=== PATIENT | female | born 1990 | race Caucasian/White ===

== ENCOUNTER 2024-09-01 19:24 | Inpatient (IN) | payer OTHER, SELFPAY ==
[2024-09-01 19:23] VITALS: BMI 48.7
[2024-09-01 19:57] VITALS: BP 117/57; PULSE 88; RESP 16; TEMP 36.7
[2024-09-01] MEDS: 0.9% Saline Lock 10 ML Syringe IV (20:39)
[2024-09-01] MEDS: miSOPROStol 25 MCG TABLET VAGINAL (20:39)
[2024-09-01 20:41] LABS: Absolute Neutrophil Count 13.4 X10^3/uL (2.0-7.7); Basophil# 0.08 X10^3/uL; Basophil% 0.4 % (0-1); Eosinophils% 1.7 % (0-5); Hematocrit 36.5 % (37-47); Lymphocyte % 12.4 % (19-41); Mean Corp Hgb Conc 32.9 g/dL (32-36); Mean Corpuscular Volume 82.2 fL (81-99); Monocyte# 1.41 X10^3/uL; Monocyte% 7.9 % (0-10); NRBC Flagged by Analyzer 0 % (0-5); Neutrophil # 13.44 X10^3/uL (2.7-7.7); Neutrophil % 75.5 % (47-70); Platelet Count 266 K/mm3 (150-450); RBC Distribution Width CV 15.6 % (11.6-14.6); RBC Distribution Width SD 46.3 fl (35.1-43.9); Red Blood Count 4.44 M/mm3 (4.2-5.4); White Blood Count 17.8 K/mm3 (4.4-11.0)
[2024-09-01 21:18] LABS: Syphilis Antibodies Non-reactive
[2024-09-02] VITALS (10 sets, daily range): BP systolic 124–142; BP diastolic 60–78; PULSE 69–81; RESP 16; TEMP 36.4–36.8; O2SAT 96–99
[2024-09-02] MEDS: miSOPROStol 25 MCG TABLET VAGINAL ×4 (00:42→13:06)
--- NOTE | 2024-09-02 06:52 | PCM.HP.OB ---
HPI - General General Date of Admission: 09/01/24 Date of Service: 09/01/24 Chief Complaint: Induction HPI Narrative RO RAO, is a 34 F who presents induction of labor for maternal obesity. HX of HSv no recent outbreaks. EFW 56% Maternal Data Information Final DIPESH: 09/06/24 Gestational age: 39+2 PFSH PFSH Medical History Infertility Home Medications ?Medication ?Instructions ?Recorded ?Last Taken ?Type acyclovir 400 mg tablet 400 mg PO TID HSV 09/01/24 09/01/24 18:30 History aspirin 81 mg capsule 81 mg PO DAILY 09/01/24 09/01/24 08:00 History Allergy/AdvReac Type Severity Reaction Status Date / Time No Known Allergies Allergy Verified 09/01/24 20:02 Surgical History History of appendectomy Social History Smoking Status: Never smoker History 1 Elective abortions Hx Para 0 Spontaneous abortions Hx # Term Pregnancies Ectopic pregnancies Hx # Pregnancies Multiple births # of living children NST FHR Rate Baby A Baseline: 125 Variability:: Moderate Accelerations:: 15 x 15 Decelerations:: None NST Reactive:: Yes FHR Category:: Category I Uterine Activity:: quiet ROS Constitutional Constitutional: Denies fatigue, fever(s) or malaise Eyes Eyes: Denies change in vision ENT HEENT: Denies dizziness or headache(s) Cardiovascular Cardiovascular: Denies chest pain, dyspnea or lightheadedness Respiratory/Chest Respiratory/Chest: Denies cough or dyspnea Gastrointestinal Gastrointestinal: Denies change in bowel habits Genitourinary Genitourinary: Denies burning urination or genital lesions Integumentary Integumentary: Denies rash Neurologic Neurologic: Denies confusion, dizziness, headache(s), numbness or weakness Vital Signs Vital Signs Vital Signs: 09/01/24 19:57 09/01/24 19:57 09/01/24 19:57 Temperature Temperature Source Temporal Pulse Rate 88 Respiratory Rate Blood Pressure 117/57 L BP Systolic 117 BP Diastolic 57 Pulse Ox 09/01/24 19:57 09/01/24 19:57 09/02/24 00:44 Temperature 98.1 F Temperature Source Pulse Rate Respiratory Rate 16 Blood Pressure 124/60 H BP Systolic 124 BP Diastolic 60 Pulse Ox 09/02/24 00:44 09/02/24 00:44 09/02/24 00:44 Temperature Temperature Source Temporal Pulse Rate 74 Respiratory Rate 16 Blood Pressure BP Systolic BP Diastolic Pulse Ox 09/02/24 00:44 09/02/24 00:44 09/02/24 04:30 Temperature 97.6 F L Temperature Source Pulse Rate Respiratory Rate Blood Pressure 135/65 H BP Systolic 135 BP Diastolic 65 Pulse Ox 98 09/02/24 04:30 09/02/24 04:30 09/02/24 04:30 Temperature Temperature Source Temporal Pulse Rate 74 Respiratory Rate Blood Pressure BP Systolic BP Diastolic Pulse Ox 98 09/02/24 04:30 09/02/24 04:30 Temperature 98.0 F Temperature Source Pulse Rate Respiratory Rate 16 Blood Pressure BP Systolic BP Diastolic Pulse Ox Weight Weight: 128.8 kg Body Mass Index (BMI) 48.7 Physical Exam Const alert and no apparent distress General Appearance: cooperative HEENT normocephalic Resp normal respiratory effort GI soft to palpation GI Narrative: gravid, nontender, appropriate for gestational age Extremity no calf tenderness General Extremity: edema Skin no wounds Rashes: No rashes noted Psych activity/motor behavior normal Labs Labs Labs: Blood Type O POSITIVE Antibody Screen NEGATIVE Hct 36.5 % (37-47) L Hgb 12.0 g/dL (12.0-15.0) Syphilis Total Ab Non-reactive Assessment & Plan (1) Encounter for induction of labor: (2) 39 weeks gestation of : (3) Hx of herpes simplex infection: (4) Maternal obesity affecting , antepartum: PLAN: Plan Cytotec, samano, pitocin Epidural prn
--- NOTE | 2024-09-02 08:59 | PCM.PN.CNM ---
Subjective Subjective Patient seen at bedside. Requesting to eat light breakfast Objective Data Objective Data Vital Signs: Vital Signs Temp Pulse Resp BP Pulse Ox 98.0 F 73 16 142/62 H 99 09/02/24 07:36 09/02/24 07:36 09/02/24 07:36 09/02/24 07:36 09/02/24 07:36 Weight: 283 lb 15.286 oz Body Mass Index (BMI) 48.7 Lab / Micro Data 09/01/24 20:30 Labs: Laboratory Results - last 24 hr 09/01/24 20:30: WBC 17.8 H, RBC 4.44, Hgb 12.0, Hct 36.5 L, MCV 82.2, MCH 27.0, MCHC 32.9, RDW Std Deviation 46.3 H, RDW Coeff of Wendi 15.6 H, Plt Count 266, MPV 10.0, Immature Gran % (Auto) 2.100 H, Neut % (Auto) 75.5 H, Lymph % (Auto) 12.4 L, [place] % (Auto) 7.9, Eos % (Auto) 1.7, Baso % (Auto) 0.4, Absolute Neuts (auto) 13.4 H, Absolute Lymphs (auto) 2.20, Nucleated RBC % 0, Syphilis Total Ab Non-reactive, Blood Type O POSITIVE, Antibody Screen NEGATIVE Assessment & Plan (1) Maternal obesity affecting , antepartum: (2) Hx of herpes simplex infection: (3) 39 weeks gestation of : (4) Encounter for induction of labor: (5) Positive GBS test: PLAN: Plan CE - FT/ thick/ high- unable to place samano bulb Continue Cytotec 25 mcg PO every 4 hours with max of 6 doses GBS positive- PCN IV every 4 hours Increase ambulation Epidural when indicated
--- NOTE | 2024-09-02 12:54 | PN.OBGYN_ITS ---
Subjective Subjective Patient seen at bedside. Starting to feel mild contractions. Objective Data Objective Data Vital Signs: Vital Signs Temp Pulse Resp BP Pulse Ox 98.3 F 71 16 133/74 H 96 09/02/24 12:39 09/02/24 12:39 09/02/24 12:39 09/02/24 12:39 09/02/24 12:39 Weight: 283 lb 15.286 oz Body Mass Index (BMI) 48.7 Lab / Micro Data 09/01/24 20:30 Labs: Laboratory Results - last 24 hr 09/01/24 20:30: WBC 17.8 H, RBC 4.44, Hgb 12.0, Hct 36.5 L, MCV 82.2, MCH 27.0, MCHC 32.9, RDW Std Deviation 46.3 H, RDW Coeff of Wendi 15.6 H, Plt Count 266, MPV 10.0, Immature Gran % (Auto) 2.100 H, Neut % (Auto) 75.5 H, Lymph % (Auto) 12.4 L, [place] % (Auto) 7.9, Eos % (Auto) 1.7, Baso % (Auto) 0.4, Absolute Neuts (auto) 13.4 H, Absolute Lymphs (auto) 2.20, Nucleated RBC % 0, Syphilis Total Ab Non- reactive, Blood Type O POSITIVE, Antibody Screen NEGATIVE Assessment & Plan (1) Positive GBS test: (2) Maternal obesity affecting , antepartum: (3) Hx of herpes simplex infection: (4) 39 weeks gestation of : (5) Encounter for induction of labor: PLAN: Plan CE /-4- Extremely posterior Cat. 1 tracing Physician to attempt placement of samano bulb Epidural when indicated
[2024-09-02] MEDS: 0.9% Saline Lock 10 ML Syringe IV ×2 (14:56→19:09)
--- NOTE | 2024-09-02 15:01 | PCM.PN.BLA ---
Progress Note at bedside to check on patient. she offers no complaints. Assessment & Plan Assessment/Plan (1) Positive GBS test: (2) Maternal obesity affecting , antepartum: (3) Hx of herpes simplex infection: (4) 39 weeks gestation of : (5) Encounter for induction of labor: PLAN: Cvx 1/t/h, vertex. Intracervical samano placed in usual sterile fashion and filled with 30 cc saline. Patient tolerated well.
[2024-09-02] MEDS: Penicillin G Pot 5,000,000 UNITS in 0.9% Normal Saline (100mL MB+) 100 ML 150 UNITS IV (15:07)
--- NOTE | 2024-09-02 18:44 | PCM.PN.CNM ---
Subjective Subjective Patient seen at bedside. Occasionally feeling contractions. Objective Data Objective Data Vital Signs: Vital Signs Temp Pulse Resp BP Pulse Ox 98.3 F 74 16 129/78 H 96 09/02/24 12:39 09/02/24 18:42 09/02/24 12:39 09/02/24 18:42 09/02/24 12:39 Weight: 283 lb 15.286 oz Body Mass Index (BMI) 48.7 Intake & Output: Intake and Output for Last 24 Hours 08/31/24 09/01/24 09/02/24 23:59 23:59 23:59 Intake Total 1305 / 1305 Output Total 850 / 850 Balance 455 / 455 Lab / Micro Data 09/01/24 20:30 Labs: Laboratory Results - last 24 hr 09/01/24 20:30: WBC 17.8 H, RBC 4.44, Hgb 12.0, Hct 36.5 L, MCV 82.2, MCH 27.0, MCHC 32.9, RDW Std Deviation 46.3 H, RDW Coeff of Wendi 15.6 H, Plt Count 266, MPV 10.0, Immature Gran % (Auto) 2.100 H, Neut % (Auto) 75.5 H, Lymph % (Auto) 12.4 L, [place] % (Auto) 7.9, Eos % (Auto) 1.7, Baso % (Auto) 0.4, Absolute Neuts (auto) 13.4 H, Absolute Lymphs (auto) 2.20, Nucleated RBC % 0, Syphilis Total Ab Non-reactive, Blood Type O POSITIVE, Antibody Screen NEGATIVE Assessment & Plan (1) Encounter for induction of labor: (2) 39 weeks gestation of : (3) Maternal obesity affecting , antepartum: (4) Positive GBS test: (5) Hx of herpes simplex infection: PLAN: Plan CE- /70/-3 AROM for moderate amount of clear fluid FSE and IUPC placed without difficulty Dr. Quinones present Start Pitocin 2 mu/min and increase per orders
[2024-09-02] MEDS: Lactated Ringers 1,000 ML 15 ML IV (19:09)
[2024-09-02] MEDS: Oxytocin 15 Units/NS 250ml 15 UNITS/250 ML IV.SOLN 2 UNITS IV (19:10)
[2024-09-02] MEDS: Penicillin G 3,000,000 Units 50 ML 100 UNITS IV (19:47)
[2024-09-03] VITALS (59 sets, daily range): BP systolic 86–141; BP diastolic 52–88; PULSE 69–96; RESP 16–20; TEMP 36.3–37.4; O2SAT 95–100
[2024-09-03] MEDS: fentaNYL 100 MCG/2 ML Ampul IV ×4 (00:04→06:41)
[2024-09-03] MEDS: 0.9% Saline Lock 10 ML Syringe IV ×5 (00:04→17:44)
[2024-09-03] MEDS: Penicillin G 3,000,000 Units 50 ML 100 UNITS IV ×4 (00:53→13:20)
[2024-09-03] MEDS: Lactated Ringers 1,000 ML 999 ML IV (08:40)
--- NOTE | 2024-09-03 08:46 | PCM.PN.OB ---
Subjective Subjective Presented to patient room as oncoming provider. Nurse in middle of vaginal exam and placing new IUPC as two prior dislodged. When preparing to complete vaginal exam and place IUPC partner stated, Ro don't talk to them talk to me, don't let them bully you. At that time, gloves removed and patient returned to upright position. Reviewed with patient and partner no exams are conducted without consent and if she wishes to not proceed due to pain we will stop. No current pain relief at this time as she has declined epidural and used Fentanyl PRN. Instructed patient and partner to discuss how they would like to proceed and time to talk alone and myself and nurse left the room. After giving time for patient and partner to talk we returned to review plan of care. Objective Data Objective Data Vital Signs: Vital Signs Temp Pulse Resp BP Pulse Ox 97.6 F L 72 17 122/65 H 97 09/03/24 08:03 09/03/24 07:58 09/03/24 07:59 09/03/24 07:58 09/03/24 07:59 Weight: 283 lb 15.286 oz Body Mass Index (BMI) 48.7 Intake & Output: Intake and Output for Last 24 Hours 09/01/24 09/02/24 09/03/24 23:59 23:59 23:59 Intake Total 1372.70 / 1372.70 190.83 / 190.83 Output Total 1200 / 1200 Balance 172.70 / 172.70 190.83 / 190.83 Lab / Micro Data 09/01/24 20:30 Physical Exam Narrative Informed refusal of IUPC and vaginal exam NST FHR Rate Baby A Baseline: 130 Variability:: Moderate Accelerations:: None Decelerations:: Variable FHR Category:: Category II Uterine Activity:: Every 2 minutes Assessment & Plan (1) Positive GBS test: (2) Maternal obesity affecting , antepartum: (3) Hx of herpes simplex infection: (4) 39 weeks gestation of : (5) Encounter for induction of labor: PLAN: Plan 1) Discussed with patient and partner that I would recommend an epidural at this time for pain relief. After epidural would recommend vaginal exam in 2-3 hours and IUPC placement for evaluation of adequacy of contractions. Patient and partner felt comfortable with this plan and moving forward 2) Category 2 FHT 3) Pitocin at 20mu's, EFM currently per patient request 4) AROM at 1830, ruptured for over 12hr with no cervical change. Patient desires to continue with labor at this time. 5) Reviewed plan with collaborative physician and assessment. Agrees with plan of care.
[2024-09-03] MEDS: fentaNYL-bupivacaine (epidural) 100 ML BAG EPIDURAL (09:52)
--- NOTE | 2024-09-03 13:07 | PCM.PN.OB ---
Subjective Subjective Patient resting comfortably in bed with epidural and was able to rest. Partner at bedside. Discussed earlier this morning about labor progression protracted and after epidural placement to evaluate for cervical change and then to discuss delivery plan. Objective Data Objective Data Vital Signs: Vital Signs Temp Pulse Resp BP Pulse Ox 97.6 F L 89 17 119/57 L 99 09/03/24 11:55 09/03/24 13:06 09/03/24 11:55 09/03/24 13:06 09/03/24 11:06 Weight: 283 lb 15.286 oz Body Mass Index (BMI) 48.7 Intake & Output: Intake and Output for Last 24 Hours 09/01/24 09/02/24 09/03/24 23:59 23:59 23:59 Intake Total 1372.70 / 1372.70 1443.58 / 1443.58 Output Total 1200 / 1200 Balance 172.70 / 172.70 1443.58 / 1443.58 Lab / Micro Data 09/04/24 06:45 Physical Exam Narrative: /-3 NST FHR Rate Baby A Baseline: 135 Variability:: Moderate Accelerations:: 15 x 15 Decelerations:: Variable FHR Category:: Category II Uterine Activity:: Regular every 2.5 minutes, strong MVU 220 adequate Assessment & Plan (1) 39 weeks gestation of : (2) Encounter for induction of labor: (3) Maternal obesity affecting , antepartum: (4) Hx of herpes simplex infection: (5) Positive GBS test: (6) Failure to progress in first stage of labor: (7) Failed induction of labor: PLAN: Plan 1) The patient was admitted on 09/01/2024 for induction of labor due to maternal obesity. She underwent Cytotec cervical ripening x 5 doses then followed by a Samano placement. After samano expelled had artificial rupture membranes. She had artificial rupture of membranes for 12 plus hours without significant progression of cervical dilation. The head remained unengaged and cervical change after pitocin at 20mu's with adequate contractions for at least 6 hours. Discussed with patient recommendation to proceed with primary section. Agreeable to plan of care. 2) Ancef 3grams IVPB x 1 3) Azithromycin 500mg IVPB x 1 4) notified of cervical exam and failed inductino of labor with failure to progress and recommend section, patient agrees with plan of care. agrees with above assessment and plan. Will prepare for section and transfer of care to physician at this time for management.
[2024-09-03] MEDS: Sodium Citrate/Citric Acid 30 ML UDC PO (14:48)
[2024-09-03] MEDS: Acetaminophen 500 MG Tablet PO (14:49)
[2024-09-03] MEDS: Cefazolin 3 GM in 0.9% Normal Saline (100mL Bag) 100 ML IV (14:56)
[2024-09-03] MEDS: Azithromycin 500 MG in Dextrose 5%-Water (250mL Bag) 250 ML 250 MG IV (15:15)
--- NOTE | 2024-09-03 15:50 | PLAC_PTH ---
PATIENT: RO RAO LOC: WP U#:[id number] AGE/SX: 34/F ROOM: WP010 RE09/01/[address]: Dr. Taryn Khanna MD : 1990 BED: 1 DIS: 09/05/2024 SPEC #: [id number] RECD: 09/06/24 08:17 STATUS: SHAJI REKiko #: [id number] JENNYFER: 09/03/24 15:[address]: Taryn Khanna DEPT: SURGICAL PATHOLOGY RECD BY: Sherry Stone ENTERED: 09/06/24 08:17 SP TYPE: PLACENTA OTHR DR: No Primary Care Phys Tissues: Placenta, NOS Procedures: Surgery Specimen Level V HEADER OPERATION: section PRE-OP DIAGNOSIS: Arrest of dilation TISSUE SUBMITTED: Placenta MICROSCOPIC DIAGNOSIS Allen placenta (497 gm): Umbilical cord - Trivascular with no evidence of inflammation. Placental membranes - Mild acute decidual inflammation. Placental disc - Donta-Lon change, intervillous congestion, mildly increased intraparenchymal Microcalcificaitons and rare intravascular thrombi. AM: 09/07/2024 MICROSCOPIC DESCRIPTION Slides are reviewed. GROSS DESCRIPTION SPECIMEN: PLACENTA / CLINICAL INFORMATION: A. Weight: 2.965 kg B. Gestational Age: 39 weeks C. Sex: Male PLACENTAL WEIGHT (POST FIXATION): 497 gm PLACENTAL DIMENSIONS: 20.0 x 16.0 x 3.5cm PLACENTAL SHAPE: Usual ovoid PLACENTAL WEIGHT FOR GESTATIONAL AGE: Within 10-99th percentile MEMBRANES - Present A. Insertion: Marginal B. Site of rupture from edge: Fragmented and present detached from the placental disc. Distance of rupture cannot be assessed. C. Color of membrane: Hardin walls D. Abnormalities: None UMBILICAL CORD - Present A. Color: Hardin walls B. Insertion: Central and appears to be 5cm long portion of the umbilical cord is bifurcated before insertion into the placental disc. C. Length: 45.0 cm D. Diameter: 1.2 cm E. Number of vessels: Three F. Abnormalities: A true loose knot is also noted 13cm away from the end. PLACENTAL DISC - Present A. Color of surface: Hardin walls B. surface abnormalities: None C. Maternal cotyledons: Intact with minimal tears D. Attached retro placental clot: No clot E. Cut surface: Dark red and spongy F. Lesions: None G. Separate clot: Absent SECTIONS SUBMITTED: (6 cassettes) 1. Membrane roll 2. Cord, maternal end 3. Cord, end 4. Placental disc, and maternal surfaces 5. Placental disc, and maternal surfaces 6. Placental disc, and maternal surfaces SJ.mr 09/06/2024 TC:2 CPT: 43721
--- NOTE | 2024-09-03 16:04 | OP.PCM_ITS ---
Maternal Data Information Final DIPESH: 09/06/24 Gestational age: 39 4/7 Details Operative Information Date of Procedure: 09/03/24 Pre-Operative Diagnosis: arrest of dilation, maternal obesity BMI >35, failed induction Post-Operative Diagnosis: same Classification: NORTH Procedure Type: low transverse yard supervisor cotton gin #1: Dennis Garsia yard supervisor cotton gin #2: Jennifer Leong MS3 Type of Anesthesia: Epidural Anesthesiologist: Kendrick Amezcua Special Medications: preop TXA Antibiotic Given: Ancef 3 grams IV x1 and Zithromax 500 mg/5 mL X1 Drain: Vale to straight drain Estimated Blood Loss: 800 Fluids Replaced: 1200 Procedure Start Time: 15:16 Procedure Stop Time: 16:06 Time of Delivery: 15:19 Findings Description of Procedure: The patient was admitted on 09/01/2024 for induction of labor due to maternal obesity. She underwent Cytotec cervical ripening followed by a Vale with artificial rupture membranes. She had artificial rupture of membranes for 20 hours without significant progression of cervical dilation. The head remained unengaged at the time of . I checked the patient she was 480 and the cervix was tight and the head was unengaged with significant caput. At this point the patient met in failed induction criteria. Risk benefits and alternatives to section were reviewed and the patient desired to proceed. The patient was taken to the operating room. She was prepped and draped in the dorsal supine position with a leftward tilt. A Pfannenstiel skin incision was made approximately 2 cm above the symphysis pubis and carried through to underlying layer fascia with the scalpel. The fascia was incised incised in the midline and extended laterally with the Rueda scissors. The fascia was dissected off the rectus muscles with blunt and sharp dissection. The rectus muscles were in the midline and the peritoneum was entered bluntly. The peritoneal incision was stretched and the bladder blade was placed. The uterine incision was made in a low transverse fashion with the scalpel and extended superiorly and inferiorly with blunt dissection. The amniotic membranes were ruptured bluntly and clear amniotic fluid returned. The infant's head was brought to the incision in the flexed position and delivered without difficulty. The remainder of the infant was delivered with gentle traction and fundal pressure in the standard fashion. The mouth and nares were bulb suctioned. The cord was clamped and cut as the infant was stimulated. Cord clamping was delayed approximately 30 seconds. The was handed off to the waiting nursing staff. The placenta was delivered with fundal massage and gentle traction in the standard fashion. The uterus was exteriorized and cleared of all clots and debris. The uterine incision was closed with #1 Vicryl in a running locked fashion. A second layer of the same suture was used in an imbricating fashion to obtain hemostasis. 2 [id number] 0 Vicryl sutures were placed through a bleeding sinus near the midline. The incision was examined and was found to be hemostatic. The uterus was placed back into the peritoneal cavity and hemostasis was again c onfirmed. Hemablast was placed over the incision. The rectus muscles were examined and any bleeding was Bovie cauterized. The parietal peritoneum and rectus muscles were closed en bloc with an 0 Vicryl running suture. The surgical teams outer gloves were then changed. The rectus fascia was examined and any bleeding was Bovie cauterized and the rectus fascia was closed with #1 looped PDS suture in a running standard fashion. Hemablast was placed over the rectus muscles. The subcutaneous tissue was examining and any bleeding was Bovie cauterized. The subcutaneous tissue was reapproximated with 3-0 Vicryl suture. The skin was closed in a subcuticular fashion by the DOCUMENTATION IMPROVEMENT SPECIALIST with me present in the labor and delivery suite. I performed the remainder of the procedure with assistance. All sponge, lap, and needle counts were correct. The patient was taken to her room for recovery in a stable condition. The DOCUMENTATION IMPROVEMENT SPECIALIST performed tissue retraction, assistance with suturing and fundal massage and closure of the skin incision. The student assisted with closure of the skin incision and tying of subcuticular sutures. Presentation: Positive for Vertex Amniotic Membrane Rupture Type: Artificial Amniotic Fluid Description: Clear Placental Delivery Description: Manual Removal Placenta Disposition: Sent to Pathology Specimen(s) Sent to Pathology: placenta Cord Vessel Description: 3 Vessels Cord Entanglement: None Nuchal Cord Compression: Without compression Infant A Gender: Male (1 minute): 9 (5 minute): 9 Delayed Cord Clamping: No Complications Complications: none Admit VTE Documentation VTE Present on Admission: No VTE Mechan Device Prophylaxis: SCD's VTE Pharm Prophylaxis Ordered: Yes
--- NOTE | 2024-09-03 16:15 | PCM.PN.BLA ---
Progress Note Called by nursing ad patient w/ poorly controlled pain and concerned about being able to rest at home. Ok to monitor and keep for IV pain control prn overnight.
[2024-09-03] MEDS: Oxytocin 15 Units/NS 250ml 15 UNITS/250 ML IV.SOLN 83 UNITS IV (16:20)
[2024-09-03 16:47] LABS: Pathology Specimen OB SEE PATHOLOGY REPORT
[2024-09-03] MEDS: Ketorolac 30 MG/ML Syringe IV (17:44)
[2024-09-03] MEDS: Lactated Ringers 1,000 ML 100 ML IV (19:26)
[2024-09-03] MEDS: Acetaminophen 500 MG Tablet 1000 MG PO (20:44)
--- NOTE | 2024-09-03 22:51 | NURSING ---
pt encouraged to drink more water, RN to reassess if toradol can be given around 2340
[2024-09-04 00:35] VITALS: BP 113/68; PULSE 93; RESP 18; TEMP 37.5; O2SAT 97
[2024-09-04] MEDS: Ketorolac 30 MG/ML Syringe IV ×2 (04:16→10:27)
[2024-09-04] MEDS: Acetaminophen 500 MG Tablet 1000 MG PO ×4 (04:16→22:02)
[2024-09-04] MEDS: Enoxaparin 40 MG/0.4 ML Syringe SC ×2 (04:16→16:05)
[2024-09-04] MEDS: 0.9% Saline Lock 10 ML Syringe IV ×2 (04:17→10:27)
[2024-09-04 04:25] VITALS: BP 136/79; PULSE 93; RESP 22; TEMP 37.5; O2SAT 97
[2024-09-04 06:59] LABS: Hematocrit 33.6 % (37-47); Hemoglobin 10.9 g/dL (12.0-15.0); Mean Corp Hgb Conc 32.4 g/dL (32-36); Mean Corpuscular Hgb 27.1 pg (27.0-32.0); Mean Corpuscular Volume 83.6 fL (81-99); Platelet Count 240 K/mm3 (150-450); RBC Distribution Width CV 15.7 % (11.6-14.6); Red Blood Count 4.02 M/mm3 (4.2-5.4); White Blood Count 20.4 K/mm3 (4.4-11.0)
[2024-09-04 08:50] VITALS: BP 127/68; PULSE 86; RESP 16; TEMP 37; O2SAT 96
[2024-09-04] MEDS: Senna/Docusate Sodium 1 Tablet PO (10:27)
--- NOTE | 2024-09-04 10:30 | PCM.PN.OB ---
Subjective Subjective Doing well per patient and nursing staff. Ambulating and taking PO without difficulty. Voiding and passing flatus. Pain controlled. , services for assistance. Denies headache, visual changes, chest pain, shortness of breath, leg pain or increased bleeding. Lochia normal. Objective Data Objective Data Vital Signs: Vital Signs Temp Pulse Resp BP Pulse Ox O2 Del Method 98.6 F 86 16 127/68 H 96 Room Air 09/04/24 08:50 09/04/24 08:50 09/04/24 08:50 09/04/24 08:50 09/04/24 08:50 09/04/24 08:50 Oxygen Delivery Method Room Air Weight: 283 lb 15.286 oz Body Mass Index (BMI) 48.7 Intake & Output: Intake and Output for Last 24 Hours 09/02/24 09/03/24 09/04/24 23:59 23:59 23:59 Intake Total 1372.70 / 1372.70 3202.16 / 3202.16 1000.00 / 1000.00 Output Total 1200 / 1200 1625 / 1625 700 / 700 Balance 172.70 / 172.70 1577.16 / 1577.16 300.00 / 300.00 Lab / Micro Data 09/04/24 06:45 Labs: Laboratory Results - last 24 hr 09/04/24 06:45: WBC 20.4 H, RBC 4.02 L, Hgb 10.9 L, Hct 33.6 L, MCV 83.6, MCH 27.1, MCHC 32.4, RDW Std Deviation 48.0 H, RDW Coeff of Wendi 15.7 H, Plt Count 240, MPV 10.0 ROS Constitutional Constitutional: Reports systems reviewed and no addt'l complaints, except as documented; Denies headache(s) Eyes Eyes: Denies acute decrease in peripheral vision, blurry vision or change in vision ENT HEENT: Reports systems reviewed and no addt'l complaints, except as documented Cardiovascular Cardiovascular: Denies chest pain or dizziness Respiratory/Chest Respiratory/Chest: Denies cough, dyspnea, dyspnea on exertion, shortness of breath at rest or shortness of breath with exertion Gastrointestinal Gastrointestinal: Denies abdominal pain, diarrhea, nausea or vomiting Genitourinary Genitourinary: Denies abdominal discomfort Musculoskeletal Musculoskeletal: Denies limited range of motion Integumentary Integumentary: Reports systems reviewed and no addt'l complaints, except as documented Neurologic Neurologic: Reports systems reviewed and no addt'l complaints, except as documented Psychiatric Psychiatric: Reports systems reviewed and no addt'l complaints, except as documented Endocrine Endocrinology: Reports systems reviewed and no addt'l complaints, except as documented Hematologic/Lymphatic Hematologic/Lymphatic: Reports systems reviewed and no addt'l complaints, except as documented Allergic/Immunologic Allergic/Immunologic: Reports systems reviewed and no addt'l complaints, except as documented Physical Exam Const alert and oriented x3 General Appearance: cooperative Orientation / Consciousness: awake, oriented to person, oriented to place and oriented to time Exam Limitations: no limitations HEENT normocephalic Head and Scalp: normal to inspection, normocephalic and atraumatic Face and Sinus: normal facial exam Eyes General Eye: normal appearance of both eyes Neck full ROM Chest Chest: symmetrical chest wall rise Resp normal respiratory effort and normal air movement Auscultation: clear to auscultation bilaterally Cardio regular rate, regular rhythm, S1 normal heart sound, S2 normal heart sound, no murmurs, no rub, no gallops and no clicks GI normal to inspection, nondistended, normoactive bowel sounds and non-tender GI Narrative: dressing dry and intact appearance of the vagina normal Bladder / Kidney Exam: no CVA tenderness Back/Spine normal ROM Extremity normal to inspection and full ROM Skin no rashes or lesions noted Neuro oriented x3, CN's II-XII intact bilaterally and moves all extremities Sensorium / Orientation: awake, alert and oriented to person Motor Exam: clonus absent Deep Tendon Reflexes: Rt Patellar (L4): 2+ and Lt Patellar (L4): 2+ Assessment & Plan (1) Failed induction of labor: (2) Failure to progress in first stage of labor: (3) Positive GBS test: (4) Maternal obesity affecting , antepartum: (5) Lactating mother: PLAN: Plan 1) Routine POD#1 LTCS 2) Vitals stable 3) I&O 4) Pain management 5) services PRN 6) Planning D/C home tomorrow
[2024-09-04 13:01] VITALS: BP 121/73; PULSE 71; RESP 16; TEMP 36.7; O2SAT 100
[2024-09-04] MEDS: Naproxen 500 MG Tablet PO (16:05)
[2024-09-04 16:18] VITALS: BP 114/70; PULSE 83; RESP 16; TEMP 36.9; O2SAT 97
[2024-09-04 22:13] VITALS: BP 133/77; PULSE 87; RESP 16; TEMP 36.7
[2024-09-05] MEDS: Naproxen 500 MG Tablet PO ×2 (00:24→09:33)
[2024-09-05 01:14] VITALS: BP 122/76; PULSE 75; RESP 16; TEMP 36.8
[2024-09-05] MEDS: Acetaminophen 500 MG Tablet 1000 MG PO ×2 (04:19→09:33)
[2024-09-05] MEDS: Enoxaparin 40 MG/0.4 ML Syringe SC (04:20)
[2024-09-05 09:00] VITALS: BP 115/70; PULSE 76; RESP 16; TEMP 36.8; O2SAT 98
--- NOTE | 2024-09-05 09:09 | PCM.PN.OB ---
Subjective Subjective Doing well per patient and nursing staff. Ambulating and taking PO without difficulty. Voiding and passing flatus. Pain controlled. , services for assistance. Denies headache, visual changes, chest pain, shortness of breath, leg pain or increased bleeding. Lochia normal. Objective Data Objective Data Vital Signs: Vital Signs Temp Pulse Resp BP Pulse Ox O2 Del Method 98.2 F 75 16 122/76 H 97 Room Air 09/05/24 01:14 09/05/24 01:14 09/05/24 01:14 09/05/24 01:14 09/04/24 16:18 09/04/24 16:18 Oxygen Delivery Method Room Air Weight: 283 lb 15.286 oz Body Mass Index (BMI) 48.7 Intake & Output: Intake and Output for Last 24 Hours 09/03/24 09/04/24 09/05/24 23:59 23:59 23:59 Intake Total 3202.16 / 3202.16 1000.00 / 1000.00 Output Total 1625 / 1625 1100 / 1100 Balance 1577.16 / 1577.16 -100.00 / -100.00 Lab / Micro Data 09/04/24 06:45 ROS Constitutional Constitutional: Reports systems reviewed and no addt'l complaints, except as documented; Denies headache(s) Eyes Eyes: Denies acute decrease in peripheral vision, blurry vision or change in vision ENT HEENT: Reports systems reviewed and no addt'l complaints, except as documented Cardiovascular Cardiovascular: Denies chest pain or dizziness Respiratory/Chest Respiratory/Chest: Denies cough, dyspnea, dyspnea on exertion, shortness of breath at rest or shortness of breath with exertion Gastrointestinal Gastrointestinal: Denies abdominal pain, diarrhea, nausea or vomiting Genitourinary Genitourinary: Denies abdominal discomfort Musculoskeletal Musculoskeletal: Denies limited range of motion Integumentary Integumentary: Reports systems reviewed and no addt'l complaints, except as documented Neurologic Neurologic: Reports systems reviewed and no addt'l complaints, except as documented Psychiatric Psychiatric: Reports systems reviewed and no addt'l complaints, except as documented Endocrine Endocrinology: Reports systems reviewed and no addt'l complaints, except as documented Hematologic/Lymphatic Hematologic/Lymphatic: Reports systems reviewed and no addt'l complaints, except as documented Allergic/Immunologic Allergic/Immunologic: Reports systems reviewed and no addt'l complaints, except as documented Physical Exam Const alert and oriented x3 General Appearance: cooperative Orientation / Consciousness: awake, oriented to person, oriented to place and oriented to time Exam Limitations: no limitations HEENT normocephalic Head and Scalp: normal to inspection, normocephalic and atraumatic Face and Sinus: normal facial exam Eyes General Eye: normal appearance of both eyes Neck full ROM Chest Chest: symmetrical chest wall rise Resp normal respiratory effort and normal air movement Auscultation: clear to auscultation bilaterally Cardio regular rate, regular rhythm, S1 normal heart sound, S2 normal heart sound, no murmurs, no rub, no gallops and no clicks GI normal to inspection, nondistended, normoactive bowel sounds and non-tender GI Narrative: Dressing dry and intact appearance of the vagina normal Bladder / Kidney Exam: no CVA tenderness Back/Spine normal ROM Extremity normal to inspection and full ROM Skin no rashes or lesions noted Neuro oriented x3, CN's II-XII intact bilaterally and moves all extremities Sensorium / Orientation: awake, alert and oriented to person Motor Exam: clonus absent Deep Tendon Reflexes: Rt Patellar (L4): 2+ and Lt Patellar (L4): 2+ Assessment & Plan (1) Lactating mother: (2) Failed induction of labor: (3) Failure to progress in first stage of labor: (4) Positive GBS test: (5) Status post primary low transverse section: PLAN: Plan 1) Routine care, POD #2 2) Vitals signs stable 3) Pain controlled 4) , services PRN 5) D/C home 6) Follow up in 2 weeks and 6 weeks
--- NOTE | 2024-09-05 09:11 | PCM.DC.SUM ---
Providers Date of Admission: 09/01/24 Primary Care Physician: Jo Ann Primary Care Phys Reason For Visit: Diagnosis Discharge Diagnosis (1) Lactating mother: Status: Acute Code(s): Z39.1 - Encounter for care and examination of lactating mother (2) Failed induction of labor: Status: Acute Code(s): O61.9 - Failed induction of labor, unspecified (3) Failure to progress in first stage of labor: Status: Acute Code(s): O63.0 - Prolonged first stage (of labor) (4) Positive GBS test: Status: Acute Code(s): B95.1 - Streptococcus, group B, as the cause of diseases classified elsewhere (5) Status post primary low transverse section: Status: Acute Code(s): Z98.891 - History of uterine scar from previous surgery Plan 1) Routine care, POD #2 2) Vitals signs stable 3) Pain controlled 4) , services PRN 5) D/C home 6) Follow up in 2 weeks and 6 weeks Medications at Discharge Home Medications acetaminophen 500 mg tablet 1,000 mg (2 x 500 mg) PO Q6H #0 tabs 09/05/24 naproxen 500 mg tablet 500 mg PO Q8H #0 tabs 09/05/24 sennosides 8.6 mg-docusate sodium 50 mg tablet (Stimulant Laxative Plus) 1 - 2 tab PO DAILY #0 tabs 09/05/24 Hospital Course Summary of Care Provided Minutes Spent on Discharge: 15 Hospital Course: Presented for medically indicated induction of labor on 09/01/24 for maternal obesity. Cytotec, samano balloon, and pitocin for induction of labor. Protracted labor and failure to progress after adequate contractions and AROM. section on 09/03/24. course uncomplicated. Discharge home on day #2. Weight / BMI Weight Weight: 283 lb 15.286 oz Body Mass Index (BMI) 48.7 ABG / Lab / Microbiology Data 09/04/24 06:45 D/C Instructions Discharge Diet: No restrictions May resume sexual activity in: 6 weeks Weight Bearing Status: Full weight bearing Lifting Restricted to (Lbs): 20 Call your doctor if your incision/area has: Continuous Slow Oozing, Sudden Increased Bleeding, Increased Pain/ Swelling, Increased Redness, Foul Smelling Discharge and Swelling at the incision site Call your doctor if you observe: Fever of 101 or Higher, Inability to urinate, Inability to have a bowel movement, Using more than 1 pad per hour, Shortness of breath, Dizziness, Fainting spells, Chest pain, Increased palpitations (irregular heartbeat), Calf discomfort and Uncontrolled pain Suture Line Care: Avoid Pulling/Pushing Remove Dressing in: 1 week Cleanse incision/area with: Keep Dressing Clean & Dry Meaningful Use Info Meaningful Use Meaningful Use Diagnoses (Choose all that apply): None applicable Ischemic Stroke Statin Dosing Therapy Reference: STATIN DOSE THERAPY REFERENCE: * Patients > 75 years receive moderate or high dose statin therapy. * Patients 75 years or YOUNGER should receive HIGH intensity statin dose unless contraindicated. You will be required to document reason for non-treatment if statin daily dose does not meet guidelines. HIGH DOSE STATIN THERAPY DAILY Atorvastatin > than or = to 40 mg Rosuvastatin > than or = to 20 mg Amlodipine + Atorvastatin > than or = to 2.5/40 mg Ezetimibe + Simvastatin 10/80 mg Simvastatin 80mg Discharge Plan Admission Admit Date/Time: 09/01/24 19:24 Primary Reason for Your Visit: Section Attending Provider: Taryn Khanna Primary Care Provider: Veda PhysicianJo Ann Primary Instructions Patient Instructions: After a Discharge Orders/Prescriptions Prescriptions: New sennosides-docusate sodium [Stimulant Laxative Plus] 8.6-50 mg Tablet 1 - 2 tab PO DAILY Qty: 0 0RF acetaminophen 500 mg Tablet 1,000 mg PO Q6H Qty: 0 0RF naproxen 500 mg Tablet 500 mg PO Q8H Qty: 0 0RF Discontinued aspirin 81 mg capsule 81 mg PO DAILY acyclovir 400 mg tablet 400 mg PO TID Referrals / Follow Up: Care Physician,Jo Ann Primary [Primary Care Provider] - Disposition Disposition (needs filled in before D/C Order can be placed): Home, Self Care
[2024-09-05] MEDS: Senna/Docusate Sodium 1 Tablet PO (09:33)
== END 2024-09-05 11:35 | disposition home or self-care (01) | DRG 788 ==
PROVIDERS: Obstetrics & Gynecology; Admitting Provider Obstetrics & Gynecology; Referring Provider Obstetrics & Gynecology; Visit Provider Obstetrics & Gynecology
DX: O99.214 Obesity complicating childbirth (principal); O61.0 Failed medical induction of labor; O99.824 Streptococcus B carrier state complicating childbirth; O69.81X0 Labor and delivery complicated by cord around neck, without compression, not applicable or unspecified; Z37.0 Single live birth; O62.0 Primary inadequate contractions; Z3A.39 39 weeks gestation of pregnancy; Z79.82 Long term (current) use of aspirin; O63.0 Prolonged first stage (of labor)
CPT/HCPCS: 59025; 59050; 85025; 85027; 86780; 86850; 86900; 86901; 88307; 99221; J7120; A4216; G0378; J2405